=== PATIENT | male | born 1975 | race Caucasian/White ===

== ENCOUNTER 2024-10-06 14:45 | Observation (INO) | payer BC ==
[2024-10-06] MEDS: SODIUM CHLORIDE 0.9% 1,000 ML IV STA (16:05)
[2024-10-06] MEDS: ONDANSETRON 4 MG/2 ML VIAL IVP STA (16:06)
[2024-10-06] MEDS: MECLIZINE 12.5 MG TAB PO STA ×2 (16:11→20:12)
[2024-10-06 16:23] LABS: INR 1.1 (<1.2); Partial Thromboplastin Time 20.1 sec (22.0-30.0); Prothrombin Time 11.5 sec (10.0-12.5)
[2024-10-06 16:25] LABS: ALT 108 U/L (4-49); AST 67 U/L (17-59); African American GFR (CKD) >90 (>60 ml/min/1.73 sqM); Albumin 4.7 g/dL (3.5-5.0); Alkaline Phosphatase 70 U/L (38-126); Anion Gap 13 mmol/L; Blood Urea Nitrogen 15 mg/dL (9-20); Calcium 10.1 mg/dL (8.4-10.2); Carbon Dioxide 26 mmol/L (22-30); Chloride 97 mmol/L (98-107); Glucose 253 mg/dL (74-99); Non-African American GFR(CKD) 87 (>60 ml/min/1.73 sqM); Potassium 4.4 mmol/L (3.5-5.1); Sodium 136 mmol/L (137-145); Total Bilirubin 1.3 mg/dL (0.2-1.3); Total Protein 7.7 g/dL (6.3-8.2)
[2024-10-06 16:42] LABS: Influenza A Not Detected (Not Detectd); Influenza B Not Detected (Not Detectd); RSV Not Detected (Not Detectd)
[2024-10-06 16:58] LABS: Basophils % (A) 0 %; Eosinophils # (A) 0.1 k/uL (0-0.7); Eosinophils % (A) 1 %; HGB 16.5 gm/dL (13.0-17.5); Lymphocytes # (A) 1.1 k/uL (1.0-4.8); Lymphocytes % (A) 15 %; MCH 29.8 pg (25.0-35.0); MCHC 33.7 g/dL (31.0-37.0); MCV 88.4 fL (80.0-100.0); Monocytes # (A) 0.2 k/uL (0-1.0); Monocytes % (A) 3 %; Neutrophils # (A) 6.3 k/uL (1.3-7.7); Neutrophils % (A) 81 %; Platelet Count 263 k/uL (150-450); RBC 5.54 m/uL (4.30-5.90); RDW 12.6 % (11.5-15.5); WBC 7.7 k/uL (3.8-10.6)
--- NOTE | 2024-10-06 17:26 | XR ---
EXAMINATION TYPE: XR chest 1V portable DATE OF EXAM: 10/06/2024 5:22 PM COMPARISON: None TECHNIQUE: XR chest 1V portable Portable AP radiograph of the chest. CLINICAL INDICATION:Male, 49 years old with history of vertigo; FINDINGS: Lungs/Pleura: There is no evidence of pleural effusion, focal consolidation, or pneumothorax. Pulmonary vascularity: Unremarkable. Heart/mediastinum: Cardiomediastinal silhouette is unremarkable. Musculoskeletal: No acute osseous pathology. IMPRESSION: No acute cardiopulmonary disease/process. [facility], , 10/06/2024 5:24 PM
--- NOTE | 2024-10-06 17:44 | CT ---
EXAMINATION TYPE: CT brain wo con CT DLP: 1143 mGycm, Automated exposure control for dose reduction was used. DATE OF EXAM: 10/06/2024 5:38 PM COMPARISON: None. CLINICAL INDICATION:Male, 49 years old with history of vertigo, Vertigo. TECHNIQUE: Brain: Multiple axial CT images of the brain were obtained without IV contrast. . Coronal and sagitta l reformats reviewed. FINDINGS: Brain: Extra-axial spaces: No abnormal extra-axial fluid collections. Ventricular system: Within normal limits Cerebral parenchyma: No acute intraparenchymal hemorrhage or mass effect. The lujan-white junction is well differentiated. Cerebellum: Unremarkable. Mass effect: No evidence of midline shift. Intracranial vasculature: unremarkable Soft tissues: Normal. Calvarium/osseous structures: No depressed skull fracture. Paranasal sinuses and mastoid air cells: Clear Visualized orbits: Orbital contents are intact. IMPRESSION: No acute intracranial process. [facility], , 10/06/2024 5:41 PM
--- NOTE | 2024-10-06 18:05 | CT ---
EXAMINATION TYPE: CT angio head neck CT DLP: 590.3 mGycm, Automated exposure control for dose reduction was used. DATE OF EXAM: 10/06/2024 5:51 PM COMPARISON: CT brain of the same date. CLINICAL INDICATION:Male, 49 years old with history of vertigo; PHH, Vertigo. TECHNIQUE: Axially acquired helical CT angiogram of the head and neck was obtained with contrast util izing 75 cc of Isovue-370 administered intravenously. Axial images are supplemented with 3D reconstru ctions which were post-processed at an independent workstation. NASCET criteria used. FINDINGS: CTA HEAD: No evidence of acute intracranial hemorrhage, mass effect, or midline shift. The ventricles, sulci, a nd cisterns are unremarkable. The visualized portions of the internal carotid arteries, middle cerebral arteries, anterior cerebral arteries, and posterior cerebral arteries are patent. The basilar and vertebral arteries are patent. CTA NECK: Right Carotid System: The common carotid artery and external carotid artery are patent. Minimal atherosclerotic calcificati on at the carotid bifurcation. The carotid bifurcation demonstrates no evidence of hemodynamically s ignificant stenosis. The remaining portions of the internal carotid artery demonstrate normal size wi thout significant narrowing. Left Carotid System: The common carotid artery and external carotid artery are patent. Minimal atherosclerotic calcificati on at the carotid bifurcation. The carotid bifurcation demonstrates no evidence of hemodynamically si gnificant stenosis. The remaining portions of the internal carotid artery demonstrate normal size wit hout significant narrowing. Vertebral arteries are patent without evidence hemodynamically significant stenosis. Left vertebral a rtery is dominant. There is a three-vessel aortic arch. The origins of the great vessels are patent. No evidence of hemo dynamically significant stenosis. Subcentimeter right thyroid lobe hypodense nodule. IMPRESSION: 1. No evidence of dissection of the cervical internal carotid arteries or vertebral arteries or any e vidence of significant stenosis at the carotid bifurcations. 2. No evidence of high-grade stenosis or intracranial aneurysm. [facility], , 10/06/2024 6:02 PM
[2024-10-06] MEDS ORDERED: NALOXONE 0.4 MG/ML 1 ML VIAL IV PRN (19:09)
[2024-10-06] MEDS ORDERED: MECLIZINE 25 MG TAB PO PRN (19:10)
[2024-10-06] MEDS ORDERED: DEXTROSE 50% SYRINGE 50 ML IVP PRN ×2 (20:15)
--- NOTE | 2024-10-06 20:33 | ED ---
General Adult HPI - General Chief complaint: Dizziness Stated complaint: dizzy Time Seen by Provider: 10/06/24 15:40 Source: patient, RN notes reviewed, old records reviewed Mode of arrival: wheelchair Limitations: no limitations - History of Present Illness Initial comments: Is a 49-year-old male who presents emergency department complaining of vertiginous symptoms. Started on Friday, and is continuing today. He has a history of diabetes. States room is spinning with movements of his head. States it is worse when standing. Improves when laying down. Is still having room spinning sensation when laying. No other acute complaints at this time. No sensory deficits or weakness. Presents for further evaluation. Denies any head injury. Is not on blood thinners. - Related Data Home Medications Medication Instructions Recorded Confirmed Amoxicillin 500 mg PO TID 10/06/24 10/06/24 Lansoprazole 30 mg PO DAILY 10/06/24 10/06/24 Meclizine [Antivert] 25 mg PO TID PRN 10/06/24 10/06/24 Propranolol LA [Inderal LA] 60 mg PO DAILY 10/06/24 10/06/24 metFORMIN HCL 1,000 mg PO BID 10/06/24 10/06/24 sitaGLIPtin [Januvia] 100 mg PO DAILY 10/06/24 10/06/24 Allergies Allergy/AdvReac Type Severity Reaction Status Date / Time No Known Allergies Allergy Verified 10/06/24 16:52 Review of Systems ROS Statement: Those systems with pertinent positive or pertinent negative responses have been documented in the HPI. Review of Systems: CONST: Denies fever EYES: Denies blurry vision ENT: Denies nasal congestion C/V: Denies Chest pain RESP: Denies shortness of breath GI: Denies abdominal pain : Denies dysuria SKIN: Denies rash. MSK: Denies joint pain. NEURO: Endorses dizziness. Denies headache. ROS Other: All systems not noted in ROS Statement are negative. Past Medical History Additional Past Medical History / Comment(s): type II diabeties History of Any Multi-Drug Resistant Organisms: None Reported Past Surgical History: No Surgical Hx Reported Past Psychological History: No Psychological Hx Reported Smoking Status: Never smoker Past Alcohol Use History: None Reported Past Drug Use History: None Reported General Exam - General Exam Comments Initial Comments: General: Appears in no acute distress. HEAD: Normal with no signs of head trauma. EYES: PERRLA, EOMI, conjunctiva normal, no discharge. Pupils's are 3 mm and equal bilaterally. No obvious nystagmus. ENT: Hearing grossly intact, normal oropharynx. RESPIRATORY: Clear breath sounds bilaterally. No wheezes, rales, or rhonchi. C/V: Regular rate and rhythm. S1 and S2 auscultated, no edema, peripheral pulses 2+ and intact throughout ABD: Abd is soft, nontender, nondistended EXT: Normal range of motion, no obvious deformity SKIN: No rashes or lesions observed on exposed skin. NEURO: Alert and oriented x 4. No focal deficits. No obvious dysdiadochokinesia. Cerebellar function normal as evident by normal fi [id number]-[id number] testing and [id number] testing. NIH is 0. Limitations: no limitations Course Vital Signs 10/06/24 14:49 Temperature 98.2 F Pulse Rate 68 Respiratory 18 Rate Blood Pressure 138/90 O2 Sat by Pulse 99 Oximetry Medical Decision Making - Medical Decision Making Was pt. sent in by a medical professional or institution (, PA, PUTTY AND CAULKING SUPERVISOR, urgent care, hospital, or senior care...) When possible be specific @ -No Did you speak to anyone other than the patient for history (EMS, parent, family, police, friend...)? What history was obtained from this source @ -No Did you review nursing and triage notes (agree or disagree)? Why? @ -I reviewed and agree with nursing and triage notes Were old charts reviewed (outside hosp., previous admission, EMS record, old EKG, old radiological studies, urgent care reports/EKG's, senior care records)? Report findings @ -No old charts were reviewed Differential Diagnosis (chest pain, altered mental status, abdominal pain women, abdominal pain men, vaginal bleeding, weakness, fever, dyspnea, syncope, headache, dizziness, GI bleed, back pain, seizure, CVA, palpatations, mental health, musculoskeletal)? @ -Differential Dizziness: Benign paroxysmal positional Vertigo, Meniere's disease, otitis media, acoustic neuroma, vertebrobasilar insufficiency, cerebellar stroke, encephalitis, hypovolemic, arrhythmia, coronary artery syndrome, anemia, this is not meant to be an all-inclusive list EKG interpreted by me (3pts min.). @ -As above X-rays interpreted by me (1pt min.). @ -Chest x-ray reveals no obvious acute cardiopulmonary process. CT interpreted by me (1pt min.). @ -CT brain, CT angiogram head and neck negative for any obvious acute intracranial process. U/S interpreted by me (1pt. min.). @ -None done What testing was considered but not performed or refused? (CT, X-rays, U/S, labs)? Why? @ -None What meds were considered but not given or refused? Why? @ -None Did you discuss the management of the patient with other professionals (professionals i.e. , PA, PUTTY AND CAULKING SUPERVISOR, lab, RT, psych nurse, social work program coordinator, toolroom keeper, teacher, neighborhood conservation officer, case investigator)? Give summary @ -With admitting provider, Dr. Ontiveros who accepted the admission. Was smoking cessation discussed for >3mins.? @ -No Was critical care preformed (if so, how long)? @ -No Were there social determinants of health that impacted care today? How? (Homelessness, low income, unemployed, alcoholism, drug addiction, transportation, low edu. Level, literacy, decrease access to med. care, [place] [facility], rehab)? @ -No Was there de-escalation of care discussed even if they declined (Discuss DNR or withdrawal of care, Hospice)? DNR status @ -No What co-morbidities impacted this encounter? (DM, HTN, Smoking, COPD, CAD, Cancer, CVA, ARF, Chemo, Hep., AIDS, mental health diagnosis, sleep apnea, morbid obesity)? @ -None Was patient admitted / discharged? Hospital course, mention meds given and route, prescriptions, significant lab abnormalities, going to OR and other pertinent info. @ -Patient presents complaining of persistent vertigo for numerous days. Difficult to ascertain peripheral versus central. We will obtain generalized workup as well as CT imaging the brain. NIH is 0 and patient has no obvious cerebellar symptoms at this time. Vitals are within acceptable limits. He will be given meclizine, Zofran, fluids. EKG shows no signs of acute ischemia. Imaging unremarkable. Laboratory studies are still unremarkable. Viral swabs negative. On reevaluation, patient is improved but is still suffering from vertigo. Patient will be admitted to the hospital at this time for neurology evaluation for intractable vertigo. I spoke with the admitting provider, Dr. Ontiveros who accepted the admission. Consult placed to neurology. Undiagnosed new problem with uncertain prognosis? @ -No Drug Therapy requiring intensive monitoring for toxicity (Heparin, Nitro, Insulin, Cardizem)? @ -No Were any procedures done? @ -No Diagnosis/symptom? @ -Intractable vertigo Acute, or Chronic, or Acute on Chronic? @ -Acute Uncomplicated (without systemic symptoms) or Complicated (systemic symptoms)? @ -Complicated Side effects of treatment? @ -No Exacerbation, Progression, or Severe Exacerbation? @ -No Poses a threat to life or bodily function? How? (Chest pain, USA, NH, pneumonia, PE, COPD, DKA, ARF, appy, cholecystitis, CVA, Diverticulitis, Homicidal, Suicidal, threat to staff... and all critical care pts) @ -Potentially, yes - Lab Data Result diagrams: 10/06/24 15:52 10/06/24 15:52 Lab Results 10/06/24 10/06/24 10/06/24 Range/Units 15:52 15:52 15:52 WBC 7.7 (3.8-10.6) k/uL RBC 5.54 (4.30-5.90) m/uL Hgb 16.5 (13.0-17.5) gm/dL Hct 49.0 (39.0-53.0) % MCV 88.4 (80.0-100.0) fL MCH 29.8 (25.0-35.0) pg MCHC 33.7 (31.0-37.0) g/dL RDW 12.6 (11.5-15.5) % Plt Count 263 (150-450) k/uL MPV 8.0 Neutrophils % 81 % Lymphocytes % 15 % Monocytes % 3 % Eosinophils % 1 % Basophils % 0 % Neutrophils # 6.3 (1.3-7.7) k/uL Lymphocytes # 1.1 (1.0-4.8) k/uL Monocytes # 0.2 (0-1.0) k/uL Eosinophils # 0.1 (0-0.7) k/uL Basophils # 0.0 (0-0.2) k/uL PT 11.5 (10.0-12.5) sec INR 1.1 (<1.2) APTT 20.1 L (22.0-30.0) sec Sodium 136 L (137-145) mmol/L Potassium 4.4 (3.5-5.1) mmol/L Chloride 97 L (98-107) mmol/L Carbon Dioxide 26 (22-30) mmol/L Anion Gap 13 mmol/L BUN 15 (9-20) mg/dL Creatinine 1.01 (0.66-1.25) mg/dL Est GFR (CKD-EPI)AfAm >90 (>60 ml/min/1.73 sqM) Est GFR (CKD-EPI)NonAf 87 (>60 ml/min/1.73 sqM) Glucose 253 H (74-99) mg/dL Calcium 10.1 (8.4-10.2) mg/dL Total Bilirubin 1.3 (0.2-1.3) mg/dL AST 67 H (17-59) U/L ALT 108 H (4-49) U/L Alkaline Phosphatase 70 (38-126) U/L Total Protein 7.7 (6.3-8.2) g/dL Albumin 4.7 (3.5-5.0) g/dL Influenza Type A (PCR) (Not Detectd) Influenza Type B (PCR) (Not Detectd) RSV (PCR) (Not Detectd) SARS-CoV-2 (PCR) (Not Detectd) 10/06/24 Range/Units 15:52 WBC (3.8-10.6) k/uL RBC (4.30-5.90) m/uL Hgb (13.0-17.5) gm/dL Hct (39.0-53.0) % MCV (80.0-100.0) fL MCH (25.0-35.0) pg MCHC (31.0-37.0) g/dL RDW (11.5-15.5) % Plt Count (150-450) k/uL MPV Neutrophils % % Lymphocytes % % Monocytes % % Eosinophils % % Basophils % % Neutrophils # (1.3-7.7) k/uL Lymphocytes # (1.0-4.8) k/uL Monocytes # (0-1.0) k/uL Eosinophils # (0-0.7) k/uL Basophils # (0-0.2) k/uL PT (10.0-12.5) sec INR (<1.2) APTT (22.0-30.0) sec Sodium (137-145) mmol/L Potassium (3.5-5.1) mmol/L Chloride (98-107) mmol/L Carbon Dioxide (22-30) mmol/L Anion Gap mmol/L BUN (9-20) mg/dL Creatinine (0.66-1.25) mg/dL Est GFR (CKD-EPI)AfAm (>60 ml/min/1.73 sqM) Est GFR (CKD-EPI)NonAf (>60 ml/min/1.73 sqM) Glucose (74-99) mg/dL Calcium (8.4-10.2) mg/dL Total Bilirubin (0.2-1.3) mg/dL AST (17-59) U/L ALT (4-49) U/L Alkaline Phosphatase (38-126) U/L Total Protein (6.3-8.2) g/dL Albumin (3.5-5.0) g/dL Influenza Type A (PCR) Not Detected (Not Detectd) Influenza Type B (PCR) Not Detected (Not Detectd) RSV (PCR) Not Detected (Not Detectd) SARS-CoV-2 (PCR) Not Detected (Not Detectd) - EKG Data -: EKG Interpreted by Me EKG Comments: 12-lead Electrocardiogram Interpretation Note EKG was reviewed and interpreted by myself. 12-lead ECG performed at 1537 is interpreted by me as revealing normal sinus rhythm at a rate of 65 beats per minute. [place] is normal. [place] interval is 154 ms, QRS duration is 97 ms, QTc is 412 ms.. There were no ST or T wave abnormalities to suggest myocardial ischemia or injury. R wave progression across the precordium was satisfactory. By my interpretation this EKG is non-diagnostic for acute ischemia. Disposition Clinical Impression: Vertigo Disposition: ADMITTED IP TO THIS HOSP Condition: Stable Time of Disposition: 19:05
--- NOTE | 2024-10-06 20:52 | P.HPIM ---
History of Present Illness H&P Date: 10/06/24 Chief Complaint: Room spinning Very pleasant 49-year-old patient follows with Dr. Alessandra Zuniga. Chronic stable medical condition include diabetes, GERD, migraines. For the latter he takes propranolol. About 6 days ago patient started getting dizzy. Subsequently started getting much worse. By yesterday everything was spinning around with minimal movement. Denies any ear symptoms. No change in vision. No change in speech. Patient does feel better with lying down with any body movement is much worse. No prior history like the same. His at the bedside in the ER. He did go to the walk-in clinic was given amoxicillin and some steroids. And meclizine. No respiratory symptoms Review of systems: GEN.: None EYES: None HEENT: As above e NECK: None RESPIRATORY: None CARDIOVASCULAR: None GASTROINTESTINAL: None GENITOURINARY: None MUSCULOSKELETAL: None LYMPHATICS: None HEMATOLOGICAL: None PSYCHIATRY: None NEUROLOGICAL: No other focal symptoms Social history: . 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 No alcohol no smoking. Physical examination: VITAL SIGNS: 98.2, 70, 16, 134 x 69, 98% room air GENERAL: BMI 28.7, reclining bed awake. EYES: Pupils equal. Conjunctiva zarina l. HEENT: External appearance of nose and ears normal, oral cavity grossly normal. NECK: JVD not raised; masses not palpable. HEART: First and second heart sounds are normal; no edema. LUNGS: Respiratory rate normal; clear to auscultation. ABDOMEN: Soft, nontender, liver spleen not palpable, no masses palpable. PSYCH: Alert and oriented x3; mood and affect zarina l. MUSCULOSKELETAL:No Clubbing/cyanosis;muscles-grossly intact NEUROLOGICAL: No nystagmus. No cerebellar signs. No other focal findings. LYMPHATICS: No lymph nodes palpable in the axilla and neck INVESTIGATIONS, reviewed in the clinical context: October 06, 2024: White count 7.7 globin 16.5 platelets 263 sodium 136 potassium 4.4 creatinine 1.01 AST 67 ALT 108 Influenza type A, type B, RSV, COVID-19: Not detected EKG tracing personally reviewed by me-normal sinus rhythm Chest x-ray film personally reviewed by me-unremarkable CT brain: Unremarkable CT angiogram head and neck: Unremarkable Assessment plan: [place] -Patient presented 5 [employer] of progressive increasing dizziness ellipsing spinning around. Feels much better at rest and much worse with any body movement. Denies any infective symptoms. No ear symptoms otherwise. No other focal findings. Negative signs of cerebellar on clinical exam. Most likely patient has BPPV. There may be a component of vestibulitis for which patient will be tried on meclizine. -Diabetes mellitus type 2 on oral hypoglycemic Follow Accu-Cheks with sliding scale. Januvia. Metformin -GERD PPI -Chronic migraines Inderal LA 60 mg for prophylaxis -Full code Past Medical History Additional Past Medical History / Comment(s): type II diabeties History of Any Multi-Drug Resistant Organisms: None Reported Past Surgical History: No Surgical Hx Reported Past Psychological History: No Psychological Hx Reported Smoking Status: Never smoker Past Alcohol Use History: None Reported Past Drug Use History: None Reported Medications and Allergies Home Medications Medication Instructions Recorded Confirmed Type Amoxicillin 500 mg PO TID 10/06/24 10/06/24 History Lansoprazole 30 mg PO DAILY 10/06/24 10/06/24 History Meclizine [Antivert] 25 mg PO TID PRN 10/06/24 10/06/24 History Propranolol LA [Inderal LA] 60 mg PO DAILY 10/06/24 10/06/24 History metFORMIN HCL 1,000 mg PO BID 10/06/24 10/06/24 History sitaGLIPtin [Januvia] 100 mg PO DAILY 10/06/24 10/06/24 History Allergies Allergy/AdvReac Type Severity Reaction Status Date / Time No Known Allergies Allergy Verified 10/06/24 16:52 Physical Exam Vitals: Vital Signs Temp Pulse Resp BP Pulse Ox 10/06/24 20:31 70 16 134/69 98 10/06/24 14:49 98.2 F 68 18 138/90 99 Intake and Output 10/06/24 10/06/24 10/06/24 06:59 14:59 22:59 Other: Weight 90.718 kg Results CBC & Chem 7: 10/06/24 15:52 10/06/24 15:52 Labs: Abnormal Lab Results - Last 24 Hours (Table) 10/06/24 10/06/24 Range/Units 15:52 15:52 APTT 20.1 L (22.0-30.0) sec Sodium 136 L (137-145) mmol/L Chloride 97 L (98-107) mmol/L Glucose 253 H (74-99) mg/dL AST 67 H (17-59) U/L ALT 108 H (4-49) U/L
[2024-10-06 21:02] LABS: Amorphous Sediment,Urine Occasional /hpf; Appearance,Urine Turbid (Clear); Bilirubin,Urine Negative (Negative); Blood,Urine Negative (Negative); Color,Urine Light Orange; Glucose,Urine (UA) 3+ (Negative); Leukocyte Esterase,Urine Negative (Negative); Mucus,Urine Many /hpf; Nitrite,Urine Negative (Negative); Protein,Urine Trace (Negative); RBC,Urine 9 /hpf (0-5); Specific Gravity,Urine 1.033 (1.001-1.035); WBC,Urine 41 /hpf (0-5)
[2024-10-06 21:09] LABS: Ketones,Urine 2+ (Negative)
[2024-10-06] MEDS: MECLIZINE 25 MG TAB PO SCH (21:18)
[2024-10-06] MEDS: metFORMIN 500 MG TAB PO SCH (21:35)
[2024-10-06 22:41] LABS: Glucose,Whole Blood 264 mg/dL (70-110)
[2024-10-07 06:03] LABS: Glucose,Whole Blood 162 mg/dL (70-110)
[2024-10-07 06:32] LABS: Basophils % (A) 0 %; Eosinophils # (A) 0.2 k/uL (0-0.7); Eosinophils % (A) 2 %; HCT 43.4 % (39.0-53.0); HGB 14.9 gm/dL (13.0-17.5); Lymphocytes % (A) 26 %; MCH 30.2 pg (25.0-35.0); MCHC 34.3 g/dL (31.0-37.0); Mean Platelet Volume 7.8; Monocytes # (A) 0.4 k/uL (0-1.0); Monocytes % (A) 6 %; Neutrophils # (A) 4.9 k/uL (1.3-7.7); Neutrophils % (A) 64 %; Platelet Count 228 k/uL (150-450); RBC 4.93 m/uL (4.30-5.90); RDW 12.7 % (11.5-15.5); WBC 7.7 k/uL (3.8-10.6)
[2024-10-07] MEDS: PANTOPRAZOLE 40 MG TABLET PO SCH (06:46)
[2024-10-07] MEDS: INSULIN ASPART (NovoLOG) 100 UNIT/ML VIAL SQ SCH (06:46)
[2024-10-07 07:21] LABS: ALT 77 U/L (4-49); AST 35 U/L (17-59); African American GFR (CKD) >90 (>60 ml/min/1.73 sqM); Albumin 4.1 g/dL (3.5-5.0); Alkaline Phosphatase 63 U/L (38-126); Anion Gap 10 mmol/L; Blood Urea Nitrogen 11 mg/dL (9-20); Calcium 9.7 mg/dL (8.4-10.2); Carbon Dioxide 29 mmol/L (22-30); Chloride 99 mmol/L (98-107); Glucose 161 mg/dL (74-99); Non-African American GFR(CKD) >90 (>60 ml/min/1.73 sqM); Potassium 4.2 mmol/L (3.5-5.1); Sodium 138 mmol/L (137-145); Total Bilirubin 0.9 mg/dL (0.2-1.3); Total Protein 6.8 g/dL (6.3-8.2)
[2024-10-07 08:12] VITALS: BP 119/79; PULSE 66; RESP 18; TEMP 97.4
[2024-10-07] MEDS: LINAGLIPTIN 5 MG TABLET PO SCH (08:16)
[2024-10-07] MEDS: PROPRANOLOL LA 60 MG CAP.SA.24H PO SCH (08:16)
[2024-10-07 11:26] LABS: Glucose,Whole Blood 155 mg/dL (70-110)
[2024-10-07] MEDS: ONDANSETRON 4 MG/2 ML VIAL IVP PRN (13:31)
--- NOTE | 2024-10-07 15:27 | P.CNNES ---
History of Present Illness Consult date: 10/07/24 Requesting physician: Isaac Avina Reason for Consult: vertigo History of Present Illness: This is a 49-year-old gentleman who presented to hospital because of dizziness. Patient stated that his dizziness began this past Friday night. He felt was getting worse Friday. He describes as everything was spinning and it was mostly with position. He did have nausea vomiting. Denies any ringing in the ears. Denies any hearing loss. Denies any focal weakness. Denies any visual disturbance or sensory loss. Denies any history of stroke. He feels today after meclizine he is doing much better but not back to baseline but much better. He has not been having any further nausea or vomiting. Denies any a trial fibrillation. He does have underlying history of diabetes type 2. Some of workup during this hospital visit consisted of: I reviewed the lab workup. CT of the head is reported as no acute intracranial process. I personally reviewed the CT and agree with report. CT angiography of the head and neck negative for any dissection or high-grade stenosis or intracranial aneurysm. Review of Systems As per HPI. Past Medical History Past Medical History: GERD/Reflux Additional Past Medical History / Comment(s): type II diabeties History of Any Multi-Drug Resistant Organisms: None Reported Past Surgical History: No Surgical Hx Reported Past Psychological History: No Psychological Hx Reported Smoking Status: Never smoker Past Alcohol Use History: None Reported Past Drug Use History: None Reported Medications and Allergies Home Medications Medication Instructions Recorded Confirmed Type Lansoprazole 30 mg PO DAILY 10/06/24 10/06/24 History Meclizine [Antivert] 25 mg PO TID PRN 10/06/24 10/06/24 History Propranolol LA [Inderal LA] 60 mg PO DAILY 10/06/24 10/06/24 History metFORMIN HCL 1,000 mg PO BID 10/06/24 10/06/24 History sitaGLIPtin [Januvia] 100 mg PO DAILY 10/06/24 10/06/24 History Meclizine [Antivert] 25 mg PO TID #30 tab 10/07/24 Rx Allergies Allergy/AdvReac Type Severity Reaction Status Date / Time No Known Allergies Allergy Verified 10/06/24 16:52 Physical Examination - Vital Signs Vital Signs: Vital Signs Temp Pulse Pulse Resp BP BP Pulse Ox 10/07/24 10:07 66 18 10/07/24 07:50 97.4 F L 66 18 119/79 99 10/07/24 02:00 97.7 F 70 16 118/80 97 10/06/24 21:56 62 16 135/89 99 10/06/24 20:31 70 16 134/69 98 Intake and Output 10/07/24 10/07/24 10/07/24 06:59 14:59 22:59 Other: Voiding Method Toilet # Voids 1 GENERAL: The patient is lying in bed and is not in acute distress. NEUROLOGICAL: Higher mental function: The patient is awake, alert, oriented to self, place and time. Patient is following commands. No aphasia and no neglect. Cranial nerves: The pupils are round, equal and reactive to light and accommodation. Visual adler are full to confrontation throughout. Extraocular movement is intact no nystagmus is noted. Facial sensation is normal to touch throughout. The facial strength is normal throughout. Hearing is normal bilaterally to hand rub. Tongue is midline and moved [id number] without any difficulty. No dysarthria is noted. Shoulder shrug is normal bilaterally. Motor: Gait is normal. The strength is 5 over 5 throughout. Normal tone and bulk. Cerebellum: Normal finger to nose heel to Marcum bilaterally. Sensation: Sensation is normal to touch throughout. Reflexes (right/left): 2+ throughout. Plantars are downgoing bilaterally. Results - Laboratory Findings CBC and BMP: 10/07/24 06:18 10/07/24 06:18 Abnormal Lab Findings: Abnormal Labs 10/06/24 10/06/24 10/06/24 15:52 15:52 20:28 APTT 20.1 L Sodium 136 L Chloride 97 L Glucose 253 H POC Glucose (mg/dL) AST 67 H ALT 108 H Urine Protein Trace H Urine Glucose (UA) 3+ H Urine Ketones 2+ H Urine RBC 9 H Urine WBC 41 H Amorphous Sediment Occasional H Urine Mucus Many H 10/06/24 10/07/24 10/07/24 22:40 06:01 06:18 APTT Sodium Chloride Glucose 161 H POC Glucose (mg/dL) 264 H 162 H AST ALT 77 H Urine Protein Urine Glucose (UA) Urine Ketones Urine RBC Urine WBC Amorphous Sediment Urine Mucus 10/07/24 11:19 APTT Sodium Chloride Glucose POC Glucose (mg/dL) 155 H AST ALT Urine Protein Urine Glucose (UA) Urine Ketones Urine RBC Urine WBC Amorphous Sediment Urine Mucus Assessment and Plan Assessment: This is a 49-year-old gentleman who present emergency department because of dizziness. He states that his dizziness has been going on since this past Friday night but got worse Friday morning. He does not have nausea and vomiting. Since having meclizine he feels his symptoms is drastically improving. Acute vertigo likely peripheral. CTA and CT angiography of the head and neck is unremarkable. No focal deficit on examination. Underlying Diabetes mellitus. Plan: I spoke with the patient and we agreed to hold off on MRI since patient is improving and likely this is more peripheral vertigo but if he continues to have dizziness then recommend pursuing with MRI of the brain Recommend meclizine 25 mg 1 tablet 3 times daily scheduled for 7 days and after that as needed. If patient symptoms do not resolve recommend ENT and vestibular rehab therapy as an outpatient. Otherwise will defer the rest of the medical management to primary team Plan discussed with the patient and his nurse Thank you for the consultation. Time with Patient: Greater than 30
--- NOTE | 2024-10-07 20:38 | P.DS ---
Providers Date of admission: 10/06/24 19:10 Expected date of discharge: 10/07/24 Attending physician: Raj Ontiveros Consults: 10/06/24 20:31 Consult Physician Routine Consulting Provider: Corey Bryant Consult Reason/Comments: vertigo Do you want consulting provider notified?: Yes Primary care physician: Alessandra Zuniga MD Hospital Course: Chief Complaint: Room spinning Very pleasant 49-year-old patient follows with Dr. Alessandra Zuniga. Chronic stable medical condition include diabetes, GERD, migraines. For the latter he takes propranolol. About 6 days ago patient started getting dizzy. Subsequently started getting much worse. By yesterday everything was spinning around with minimal movement. Denies any ear symptoms. No change in vision. No change in speech. Patient does feel better with lying down with any body movement is much worse. No prior history like the same. His at the bedside in the ER. He did go to the walk-in clinic was given amoxicillin and some steroids. And meclizine. No respiratory symptoms October 07: Patient dizziness was better today with taking Antivert. I did a few rounds of modified Niko maneuver at the bedside. Nurse and the were present. Did walk in the hallway. Patient felt about 80% better. Full instructions were given including instructions. For modified Niko. Patient to continue taking Antivert as directed. Cleared by neurology Discussion and discharge planning more than 35 minutes Social history: . 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 No alcohol no smoking. Physical examination: VITAL SIGNS: 87.4, 66, 18, 119 x 79, 99% room air GENERAL: BMI 28.7, available EYES: Pupils equal. Conjunctiva zarina l. HEENT: External appearance of nose and ears normal, oral cavity grossly normal. NECK: JVD not raised; masses not palpable. HEART: First and second heart sounds are normal; no edema. LUNGS: Respiratory rate normal; clear to auscultation. ABDOMEN: Soft, nontender, liver spleen not palpable, no masses palpable. PSYCH: Alert and oriented x3; mood and affect zarina l. MUSCULOSKELETAL:No Clubbing/cyanosis;muscles-grossly intact NEUROLOGICAL: No nystagmus. INVESTIGATIONS, reviewed in the clinical context: October 07: White count 7.7 hemoglobin 14.9 creatinine 0.91 October 06, 2024: White count 7.7 globin 16.5 platelets 263 sodium 136 potassium 4.4 creatinine 1.01 AST 67 ALT 108 Influenza type A, type B, RSV, COVID-19: Not detected EKG tracing personally reviewed by me-normal sinus rhythm Chest x-ray film personally reviewed by me-unremarkable CT brain: Unremarkable CT angiogram head and neck: Unremarkable Assessment plan: Gulshan -Likely BPPV. With possible element of vestibulitis. Responded well to Antivert. Did very well with modified Niko maneuver few rounds. -Diabetes mellitus type 2 on oral hypoglycemic Follow Accu-Cheks with sliding scale. Januvia. Metformin -GERD PPI -Chronic migraines Inderal LA 60 mg for prophylaxis -Full code Disposition: Home Past Medical History Additional Past Medical History / Comment(s): type II diabeties History of Any Multi-Drug Resistant Organisms: None Reported Past Surgical History: No Surgical Hx Reported Past Psychological History: No Psychological Hx Reported Smoking Status: Never smoker Past Alcohol Use History: None Reported Past Drug Use History: None Reported Plan - Discharge Summary Discharge Rx Participant: Yes New Discharge Prescriptions: New Meclizine [Antivert] 25 mg PO TID #30 tab Continue sitaGLIPtin [Januvia] 100 mg PO DAILY metFORMIN HCL 1,000 mg PO BID Meclizine [Antivert] 25 mg PO TID PRN PRN Reason: Vertigo Propranolol LA [Inderal LA] 60 mg PO DAILY Lansoprazole 30 mg PO DAILY Discontinued Amoxicillin 500 mg PO TID Discharge Medication List Lansoprazole 30 mg PO DAILY 10/06/24 [History] Meclizine [Antivert] 25 mg PO TID PRN 10/06/24 [History] Propranolol LA [Inderal LA] 60 mg PO DAILY 10/06/24 [History] metFORMIN HCL 1,000 mg PO BID 10/06/24 [History] sitaGLIPtin [Januvia] 100 mg PO DAILY 10/06/24 [History] Meclizine [Antivert] 25 mg PO TID #30 tab 10/07/24 [Rx] Follow up Appointment(s)/Referral(s): Alessandra Zuniga MD [Primary Care Provider] - 1 Week (Doctor office will all patient to schedule appointment) Discharge Disposition: HOME SELF-CARE
== END 2024-10-07 13:50 | disposition home or self-care (01) ==
LOC: EC 14:45 → 1SOBS 19:10
PROVIDERS: ADMIT Hospitalist; ATTEND Hospitalist
DX: R42 Dizziness and giddiness (principal); E11.9 Type 2 diabetes mellitus without complications; K21.9 Gastro-esophageal reflux disease without esophagitis; G43.909 Migraine, unspecified, not intractable, without status migrainosus; Z11.52 Encounter for screening for COVID-19; Z79.84 Long term (current) use of oral hypoglycemic drugs; Z79.899 Other long term (current) drug therapy
CPT/HCPCS: 96376; 96374; 99285; 36415; 93005; 80053 ×2; 85025 ×2; 85610; 85730; 81001; 87636; 71045; 70496; 70450; 70498; G0378 ×2; J2405 ×2; Q9967